=== PATIENT | female | born 2000 | race Caucasian/White ===

== ENCOUNTER 2019-10-15 21:58 | Emergency (ER) | payer OTHER ==
[2019-10-15] MEDS ORDERED: SODIUM CHLORIDE 0.9% 1000ML 1,000 ML IVS ONE (22:19)
[2019-10-15] MEDS ORDERED: ONDANSETRON INJ 4 MG/2 ML VIAL IV ONE (22:19)
--- NOTE | 2019-10-15 22:22 | ED.PDOC ---
History of Present Illness - General Time Seen by Provider: 10/15/19 22:18 Additional Information: Patient is a 18-year-old female who presents to the ED with her mother with chief complaint of fainting episode. Patient is approximately 13 weeks and she has had hyperemesis gravidarum throughout the first trimester. Patient indicates she has vomited 8 times today and had very little p.o. intake and she was going to the bathroom when she stood up felt dizzy and felt as if she was going to pass out. Patient sat down again symptoms were transient and they resolved. They are associated with nausea and vomiting and loss of bladder control. Patient also notes that she has had right sided low back pain for the past month with occasional pain going into her right leg. Patient does not have any symptoms presently and she denies any weakness in the leg. She believes she has a mild case of sciatica. Patient has no other concerns today. - History of Present Illness Allergies/Adverse Reactions: Allergies NO KNOWN ALLERGY Allergy (Verified 10/15/19 22:54) Home Medications: Ambulatory Orders Promethazine Tab [Phenergan Tablet] 25 mg PO Q6H PRN #20 tab 10/15/19 Review of Systems - Review of Systems Constitutional: Denies: chills, fever EENTM: States: no symptoms reported Respiratory: States: no symptoms reported. Denies: cough, short of breath Cardiology: States: no symptoms reported. Denies: chest pain, palpitations Gastrointestinal/Abdominal: States: nausea, vomiting. Denies: abdominal pain, diarrhea Genitourinary: Denies: dysuria Musculoskeletal: Denies: muscle pain Skin: Denies: rash Neurological: Denies: headache, numbness, tremors All other Systems: Reviewed and Negative Past Medical History (General) - Patient Medical History Hx Seizures: No Hx Stroke: No Hx Dementia: No Hx Asthma: No Hx of COPD: No Hx Cardiac Disorders: No Hx Congestive Heart Failure: No Hx Pacemaker: No Hx Hypertension: No Hx Thyroid Disease: No Hx Diabetes: No Hx Gastroesophageal Reflux: No Hx Renal Disease: No Hx Cancer: No Hx of HIV: No Hx Hepatitis C: No Hx MRSA: No Surgical History: no surgical history - Vaccination History Hx Tetanus, Diphtheria Vaccination: Yes Hx Influenza Vaccination: Yes Hx Pneumococcal Vaccination: No - Social History Hx Tobacco Use: No Hx Chewing Tobacco Use: No Hx Alcohol Use: No Hx Substance Use: No Hx Substance Use Treatment: No Hx Depression: No Feels Threatened In Home Enviroment: No Feels Threatened In a Relationship: No Hx Physical Abuse: No Hx Emotional Abuse: No Hx Suspected Abuse: No - Triage Comment ED Triage Comment: The patient complained of a near syncople episode after throwing up. She is 13 weeks and advised that throwing up everyday was normal for her. She also complained of having pain to her right hip for the past month and today the pain was worse. She did not appear in distress and had no other noted complaints. Family Medical History - Family History Mother Family History: No Known Physical Exam - Physical Exam General Appearance: Alert, Comfortable, No apparent distress, Well Developed, Well Groomed, Well Hydrated, Well Nourished Ears, Nose, Throat: normal ENT inspection Neck: non-tender, full range of motion, supple, normal inspection Respiratory: chest non-tender, lungs clear, normal breath sounds, no respiratory distress, no accessory muscle use Cardiovascular/Chest: regular rate, rhythm, no edema, no gallop, no JVD, no murmur Gastrointestinal/Abdominal: normal bowel sounds, non tender, soft Back Exam: normal inspection, no CVA tenderness, no vertebral tenderness Extremity: normal range of motion, non-tender, normal inspection 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 Normal sensation to light touch bilateral feet. Full range of motion yumi ateral lower legs. Normal demonstrated gait. Skin Exam: normal color, warm/dry Progress - Progress Progress: 10/15/19 22:25 Differential diagnosis includes but is not limited to hyperemesis gravidarum, volume depletion, electrolyte disorder, cardiac dysrhythmia. 10/15/19 23:11 EKG: Normal sinus rhythm, rate 79, normal axis, normal QRS, incomplete RBBB, normal ST segment, nonspecific T wave changes, negative STEMI. Read by Tyree Walters MD. Patient reassessed and is feeling much better status post IV fluids. Her labs are unremarkable and her EKG shows no ectopy and clinically patient suffered a vasovagal episode today. Patient has no antiemetics at home and I will discharge with Phenergan and patient to rest and drink fluids and follow-up with her OB doctor. Vital signs stable, patient is NAD and looks clinically well and I believe is safe for discharge with outpatient follow-up. Follow-up instructions, discharge instructions and return to ED precautions discussed with patient. Patient voices understanding and willingness to comply with instructions. All laboratory results have been discussed with the patient, and all questions answered. Patient is happy with plan. Departure - Departure Clinical Impression: Vasovagal near-syncope, Hyperemesis gravidarum Time of Disposition: 23:14 Disposition: Discharge to Home or Self Care Condition: Good Prescriptions: Promethazine Tab [Phenergan Tablet] 25 mg PO Q6H PRN #20 tab PRN Reason: Vomiting Home Medications: Ambulatory Orders Promethazine Tab [Phenergan Tablet] 25 mg PO Q6H PRN #20 tab 10/15/19
[2019-10-15 22:29] VITALS: TEMP 97.3; O2SAT 99
[2019-10-15 23:21] VITALS: BP 117/78
== END 2019-10-15 23:21 | disposition home or self-care (01) ==
LOC: ER 21:58
DX: O26.891 Other specified pregnancy related conditions, first trimester (principal); R55 Syncope and collapse; O21.0 Mild hyperemesis gravidarum; M54.5 Low back pain; Z3A.13 13 weeks gestation of pregnancy
CPT/HCPCS: 80048; 81001; 85025; 93005; J2405; J7030